=== PATIENT | male | born 1940 | race Caucasian/White ===

== ENCOUNTER 2019-04-02 11:28 | Inpatient (IN) ==
[2019-04-02] MEDS ORDERED: NS 1,000 ML IV PRN ×2 (11:39→17:19)
--- NOTE | 2019-04-02 12:29 | Diag Imaging Result Doc PS360 ---
CT HEAD W/O CONTRAST - 04/02/2019 INDICATION: new onset of seizure COMPARISON: None FINDINGS: There is a large area of old encephalomalacia at the posterior right cerebral hemisphere compatible with an old infarction. This would be in the posterior cerebral artery territory. There is some mild periventricular and pontine white matter hypodensity compatible with chronic microvascular ischemia. No intracranial mass or hemorrhage. The skull is intact. The sinuses are clear. There is a small benign lipoma at the right side of the scalp. IMPRESSION: Chronic ischemic changes of the brain. No suspicious findings seen. This exam was performed using automated exposure control, adjustment of mA or kV according to patient size, and/or use of iterative reconstruction technique Electronically signed by South Lamb 04/02/2019 12:27 PM
--- NOTE | 2019-04-02 12:30 | Diag Imaging Result Doc PS360 ---
CHEST-PORTABLE - 04/02/2019 INDICATION: seizure COMPARISON: None FINDINGS: There is mild cardiomegaly. Pulmonary vascularity is grossly normal. No infiltrates or edema. No pneumothorax or pleural effusion. IMPRESSION: Cardiomegaly. Electronically signed by South Lamb 04/02/2019 12:28 PM
[2019-04-02] MEDS ORDERED: DOPAMINE 800 MG/D5W 800 MG/500 ML IV.SOLN IV SCH (13:15)
[2019-04-02 13:18] LABS: INR 1.13; PROTIME 15.1 Seconds (11.0-16.0)
[2019-04-02 13:19] LABS: PTT 24.1 Seconds (22.3-41.8)
[2019-04-02] MEDS ORDERED: ROCEPHIN IV ONE (13:26)
[2019-04-02] MEDS ORDERED: NS 1,000 ML IV ONE ×3 (13:36→14:11)
[2019-04-02 13:38] LABS: AGAP 15; ALKALINE PHOSPHATASE 74 U/L (32-122); BUN 13 mg/dL (8-22); CALCIUM 8.2 mg/dL (8.8-10.2); CHLORIDE 113 mmol/L (98-107); COSMO 288; ESTIMATED GFR > 60; GLUCOSE 111 mg/dL (70-104); GOT 23 U/L (10-34); GPT 32 U/L (10-44); POTASSIUM 4.5 mmol/L (3.5-5.1); SODIUM 144 mmol/L (136-145); TCO2 16 mmol/L (25-35); TOTAL PROTEIN 5.4 g/dL (6.3-8.3)
[2019-04-02 13:42] LABS: BASO# 0.02 X1000 (0.0-0.2); BASO% 0.2 % (0.0-0.8); EOS# 0.03 X1000 (0.0-0.7); EOS% 0.3 % (0.0-10.0); HEMATOCRIT 31.4 % (42.0-52.0); IMM GRAN# 0.03 X1000 (0.0-0.04); IMM GRAN% 0.3 % (0.0-0.5); LYMPH% 5.9 % (20.5-51.1); MCH 31.9 PG (27-31); MCHC 31.8 g/dL (33-37); MCV 100.3 FL (81-99); MONO# 0.72 X1000 (0.11-0.59); MONO% 7.1 % (1.7-9.3); MPV 9.8 FL (7.4-10.4); NEUT% 86.2 % (42.2-75.2); PLT 177 X1000 (130-400); RBC 3.13 XMIL (4.7-6.1); RDW 12.6 % (11.5-14.5)
--- NOTE | 2019-04-02 13:44 | PROVIDER DOCUMENTATION ---
This chart was entered by Ayanna Tian Scribe, acting as scribe for Sandra Pena MD. HPI-Neurological Disorder - General Stated Complaint: stroke symptoms Time Seen by Provider: 04/02/19 11:33 Source: patient, family, EMS Unable to obtain history due to:: urgency Allergies/Adverse Reactions: Patient Allergies Allergy/AdvReac Type Severity Reaction Status Date / Time No Known Allergies Allergy Verified 04/02/19 16:30 Home Medications: Home Medication List Medication Instructions Recorded Confirmed Last Taken Type Apixaban [Eliquis] 5 mg PO DAILY 04/02/19 04/02/19 04/02/19 History 5mg Atorvastatin Calcium [Lipitor] 40 mg PO DAILY 04/02/19 04/02/19 04/02/19 History 40 Metoprolol [Lopressor] 25 mg PO DAILY 04/02/19 04/02/19 04/02/19 History 25mg Sertraline [Zoloft] 50 mg PO DAILY 04/02/19 04/02/19 04/02/19 History 50mg - History of Present Illness-Neuro Nature of Presenting Problem: 78 yowm presents to the ed via ems (first response) with acute onset at 1000am with with pt at onset. called 911. per ems pt when aos pt had left upward gaze, LUE weakness, facial droop. medic sts pt could move BLE. pt once at ed went straight to CT and once pt was placed on the table he began to have a seizure. pt was brought back to ed in afib and actively seizing. pt was given Ativan and is currently resting with family at bedside. pt will not recieve TPA due to having a seizure. pt has no hx of seizure disorder Severity: reports: severe Onset/Duration: reports: this morning (1000am) Timing: reports: still present, constant Context: reports: impaired speech, seizure activity Character of Altered Mental Status: reports: confused Any recent trauma/injury?: reports: none Character of Deficits: reports: impaired speech New weakness or altered sensation location:: reports: LUE Cognitive Baseline: alert, oriented x3 Gait Baseline: walks without assistance Associated Symptoms: reports: confusion, seizures, weakness Similar Symptoms Previously?: Yes (cva in past) Recently seen or treated by another doctor?: No - Seizure First time to have a seizure?: Yes Witnessed seizure?: Yes (in CT) How many seizure episodes?: 1 Duration of episode? (mins): 2 Episode Frequency: no prior episodes Status Epilepticus: No Preceding symptoms/context:: other (possible CVA) Post-ictal Symptoms: reports: speech difficulty Seizure related injury: none Review of Systems - Adult - REVIEW OF SYSTEMS - ADULT ROS:: ROS per family (son renan) Constitutional: denies: chills, fever Eyes: reports: no symptoms reported Ears, Nose, Mouth & Throat: reports: no symptoms reported Cardiovascular: reports: see HPI, palpitations. denies: chest pain, syncope Respiratory: denies: cough, shortness of breath, wheezing Gastrointestinal: denies: diarrhea, nausea, vomiting Genitourinary: reports: no symptoms reported Musculoskeletal: denies: back pain, neck pain Integumentary: reports: no symptoms reported Neurological: reports: see HPI, seizure. denies: dizziness/vertigo, headache/migraines Psychiatric: reports: no symptoms reported Endocrine: reports: no symptoms reported Hematologic/Lymphatic: reports: no symptoms reported Allergic/Immunologic: reports: no symptoms reported All Other Systems: Reviewed and Negative Past History - Adult - PAST MEDICAL HISTORY-ADULT Review of Records: reports: Old Records Reviewed, Nursing Assessment Review, Medications Reviewed, Social history reviewed & non-contributory. Major Childhood Illnesses: reports: denies history Cardiovascular: reports: A-Fib, HTN Respiratory: reports: denies history Gastrointestinal: reports: GERD Genitourinary: reports: denies history Musculoskeletal: reports: denies history Hand Dominance: Right Handed Neurological: reports: CVA, stroke deficits. denies: Seizures/Epilepsy Psychiatric: reports: denies history Endocrine/Immune: reports: denies history Other Conditions: reports: denies history - PRIOR SURGERIES/PROCEDURES Surgical/Procedure History: reports: reviewed, not pertinent - IMMUNIZATION STATUS Childhood Immunizations: See Nurse Assessment Flu Vaccine: See Nurse Assessment - FAMILY HISTORY Family History: reviewed, not pertinent - SOCIAL HISTORY Smoking: denies Substance Use: denies Living Situation: family Physical Exam- Neurological - Physical Exam-Neuro Initial Vital Signs Reviewed: Yes (in afib with acute cva sx ) General Appearance: moderate distress, obese, lethargic. 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 Exam: abnormal pupil position (left upward gaze), gaze palsy Neurologic: other (unable to fully assess, patient was in postictal state, but moved all extremities) Integumentary: normal color, normal turgor, warm/dry - Glascow Coma Scale Best Eye Response: (2) open to pain Best Verbal Response: (2) incomprehsible sounds Best Motor Response: (5) localizes to pain Total Glascow Score: 9 Progress - PLAN OF CARE/RESULTS Progress/Plan/Lab Results: Vital Signs - 8 hr 04/02/19 11:37 04/02/19 12:00 04/02/19 14:00 Temperature 97.8 F 97.6 F Pulse Rate 170 H 161 H Respiratory Rate 18 12 Blood Pressure 99/56 52/38 O2 Sat by Pulse Oximetry 91 L 93 L Laboratory Results - last 24 hr 04/02/19 04/02/19 04/02/19 11:39 11:39 11:39 WBC 10.20 RBC 3.13 L Hgb 10.0 L Hct 31.4 L MCV 100.3 H MCH 31.9 H MCHC 31.8 L RDW Std Deviation 12.6 Plt Count 177 MPV 9.8 Immature Gran % (Auto) 0.3 Neut % (Auto) 86.2 H Lymph % (Auto) 5.9 L [place] % (Auto) 7.1 Eos % (Auto) 0.3 Baso % (Auto) 0.2 Immature Gran # (Auto) 0.03 Neut # (Auto) 8.80 H Lymph # (Auto) 0.60 L [place] # (Auto) 0.72 H Eos # (Auto) 0.03 Baso # (Auto) 0.02 Segmented Neutrophils 85 H Lymphocytes 8 L Monocytes 7 PT INR PTT (Actin FS) Specimen Type Sample Site pH pCO2 pO2 HCO3 Base Excess Oxyhemoglobin ABG O2 Sat (Calculated) ABG O2 Saturation ABG Carboxyhemoglobin ABG Methemoglobin Eitan Test A-a O2 Difference Total Hemoglobin Lactate Liter Flow Blood Gas Modality FiO2 % Sodium 144 Potassium 4.5 Chloride 113 H Carbon Dioxide 16 L Anion Gap 15 BUN 13 Creatinine 1.0 Estimated GFR/1.73 m2 > 60 BUN/Creatinine Ratio 13 Glucose 111 H POC Glucose Calculated Osmolality 288 Calcium 8.2 L Total Bilirubin 0.40 AST 23 ALT 32 Alkaline Phosphatase 74 Creatine Kinase Troponin T < 0.010 Total Protein 5.4 L Albumin 4.0 Globulin 1.0 Albumin/Globulin Ratio 3.0 Plasma Lactate Urine Source Urine Color Urine Clarity Urine pH Ur Specific [place] Urine Protein Urine Ketones Urine Blood Urine Nitrite Urine Bilirubin Urine Urobilinogen Urine Microscopic RBC Urine WBC Urine Microscopic WBC Ur Epithelial Cells Urine Crystals Urine Bacteria Urine Casts Urine Yeast Urine Glucose Urine Opiates Screen Ur Oxycodone Screen Urine Methadone Screen U Propoxyphene Qual Ur Barbituates Screen Ur Tricyclics Screen Ur Phencyclidine Scrn Ur Amphetamines Screen U Methamphetamines Scrn U Benzodiazepines Scrn Urine Cocaine Screen U Cannabinoids Screen 04/02/19 04/02/19 04/02/19 11:39 12:43 12:43 WBC RBC Hgb Hct MCV MCH MCHC RDW Std Deviation Plt Count MPV Immature Gran % (Auto) Neut % (Auto) Lymph % (Auto) [place] % (Auto) Eos % (Auto) Baso % (Auto) Immature Gran # (Auto) Neut # (Auto) Lymph # (Auto) [place] # (Auto) Eos # (Auto) Baso # (Auto) Segmented Neutrophils Lymphocytes Monocytes PT 15.1 INR 1.13 PTT (Actin FS) 24.1 Specimen Type Sample Site pH pCO2 pO2 HCO3 Base Excess Oxyhemoglobin ABG O2 Sat (Calculated) ABG O2 Saturation ABG Carboxyhemoglobin ABG Methemoglobin Eitan Test A-a O2 Difference Total Hemoglobin Lactate Liter Flow Blood Gas Modality FiO2 % Sodium Potassium Chloride Carbon Dioxide Anion Gap BUN Creatinine Estimated GFR/1.73 m2 BUN/Creatinine Ratio Glucose POC Glucose Calculated Osmolality Calcium Total Bilirubin AST ALT Alkaline Phosphatase Creatine Kinase 87 Troponin T Total Protein Albumin Globulin Albumin/Globulin Ratio Plasma Lactate 6.6 H* Urine Source Urine Color Urine Clarity Urine pH Ur Specific [place] Urine Protein Urine Ketones Urine Blood Urine Nitrite Urine Bilirubin Urine Urobilinogen Urine Microscopic RBC Urine WBC Urine Microscopic WBC Ur Epithelial Cells Urine Crystals Urine Bacteria Urine Casts Urine Yeast Urine Glucose Urine Opiates Screen Ur Oxycodone Screen Urine Methadone Screen U Propoxyphene Qual Ur Barbituates Screen Ur Tricyclics Screen Ur Phencyclidine Scrn Ur Amphetamines Screen U Methamphetamines Scrn U Benzodiazepines Scrn Urine Cocaine Screen U Cannabinoids Screen 04/02/19 04/02/19 04/02/19 13:34 14:05 14:15 WBC RBC Hgb Hct MCV MCH MCHC RDW Std Deviation Plt Count MPV Immature Gran % (Auto) Neut % (Auto) Lymph % (Auto) [place] % (Auto) Eos % (Auto) Baso % (Auto) Immature Gran # (Auto) Neut # (Auto) Lymph # (Auto) [place] # (Auto) Eos # (Auto) Baso # (Auto) Segmented Neutrophils Lymphocytes Monocytes PT INR PTT (Actin FS) Specimen Type ARTERIAL Sample Site L RADIAL pH 7.33 L pCO2 37 pO2 61 HCO3 20.2 Base Excess -5.9 L Oxyhemoglobin 90.0 L ABG O2 Sat (Calculated) 14.5 L ABG O2 Saturation 92.3 L ABG Carboxyhemoglobin 1.70 ABG Methemoglobin 0.9 Eitan Test YES A-a O2 Difference 149.0 Total Hemoglobin 11.4 L Lactate 1.10 Liter Flow 4.0 Blood Gas Modality CANNULA FiO2 % 36.0 Sodium Potassium Chloride Carbon Dioxide Anion Gap BUN Creatinine Estimated GFR/1.73 m2 BUN/Creatinine Ratio Glucose POC Glucose 88 Calculated Osmolality Calcium Total Bilirubin AST ALT Alkaline Phosphatase Creatine Kinase Troponin T Total Protein Albumin Globulin Albumin/Globulin Ratio Plasma Lactate Urine Source Urine Color Urine Clarity Urine pH Ur Specific [place] Urine Protein Urine Ketones Urine Blood Urine Nitrite Urine Bilirubin Urine Urobilinogen Urine Microscopic RBC Urine WBC Urine Microscopic WBC Ur Epithelial Cells Urine Crystals Urine Bacteria Urine Casts Urine Yeast Urine Glucose Urine Opiates Screen NONE DETECTED Ur Oxycodone Screen NONE DETECTED Urine Methadone Screen NONE DETECTED U Propoxyphene Qual NONE DETECTED Ur Barbituates Screen NONE DETECTED Ur Tricyclics Screen NONE DETECTED Ur Phencyclidine Scrn NONE DETECTED Ur Amphetamines Screen NONE DETECTED U Methamphetamines Scrn NONE DETECTED U Benzodiazepines Scrn PRESUMPTIVE POSITIVE A Urine Cocaine Screen NONE DETECTED U Cannabinoids Screen NONE DETECTED 04/02/19 14:15 WBC RBC Hgb Hct MCV MCH MCHC RDW Std Deviation Plt Count MPV Immature Gran % (Auto) Neut % (Auto) Lymph % (Auto) [place] % (Auto) Eos % (Auto) Baso % (Auto) Immature Gran # (Auto) Neut # (Auto) Lymph # (Auto) [place] # (Auto) Eos # (Auto) Baso # (Auto) Segmented Neutrophils Lymphocytes Monocytes PT INR PTT (Actin FS) Specimen Type Sample Site pH pCO2 pO2 HCO3 Base Excess Oxyhemoglobin ABG O2 Sat (Calculated) ABG O2 Saturation ABG Carboxyhemoglobin ABG Methemoglobin Eitan Test A-a O2 Difference Total Hemoglobin Lactate Liter Flow Blood Gas Modality FiO2 % Sodium Potassium Chloride Carbon Dioxide Anion Gap BUN Creatinine Estimated GFR/1.73 m2 BUN/Creatinine Ratio Glucose POC Glucose Calculated Osmolality Calcium Total Bilirubin AST ALT Alkaline Phosphatase Creatine Kinase Troponin T Total Protein Albumin Globulin Albumin/Globulin Ratio Plasma Lactate Urine Source CATH Urine Color YELLOW Urine Clarity CLEAR Urine pH 5.0 Ur Specific [place] 1.015 Urine Protein 1+(30 mg/dL) A Urine Ketones TRACE Urine Blood NEGATIVE Urine Nitrite NEGATIVE Urine Bilirubin NEGATIVE Urine Urobilinogen NORMAL Urine Microscopic RBC <10 Urine WBC NEGATIVE Urine Microscopic WBC <10 Ur Epithelial Cells <10 Urine Crystals NONE SEEN Urine Bacteria NEGATIVE Urine Casts NONE SEEN Urine Yeast NONE SEEN Urine Glucose NEGATIVE Urine Opiates Screen Ur Oxycodone Screen Urine Methadone Screen U Propoxyphene Qual Ur Barbituates Screen Ur Tricyclics Screen Ur Phencyclidine Scrn Ur Amphetamines Screen U Methamphetamines Scrn U Benzodiazepines Scrn Urine Cocaine Screen U Cannabinoids Screen Orders Category Date Time Status [facility] Routine [id number] 04/02/19 14:09 Active Activity - Strict Bedrest ORDERED Care 04/02/19 14:09 Active Cardiac Monitoring DIRECTED Care 04/02/19 11:39 Completed Cardiac Monitoring DIRECTED Care 04/02/19 13:23 Completed Finger Stick Blood Sugar (ED) DIRECTED Care 04/02/19 11:39 Completed [place] Cath Insertion ORDERED Care 04/02/19 13:35 Completed IV Insertion ORDERED Care 04/02/19 13:23 Completed Intake and Output-Strict ORDERED Care 04/02/19 14:09 Active Misc. NRSG Communication Order DIRECTED Care 04/02/19 11:39 Completed Neurological Check ORDERED Care 04/02/19 14:11 Active Notify MD of + Sepsis Screen NOW Care 04/02/19 13:23 Completed Notify Physician As Ordered Care 04/02/19 13:23 Active Nursing [Misc. NRSG Communication Order] DIRECTED Care 04/02/19 14:12 Active Nursing [Misc. NRSG Communication Order] DIRECTED Care 04/02/19 14:13 Active Nursing- MD Consult Request ROUTINE Care 04/02/19 15:08 Completed Oxygen Therapy- ED Nursing DIRECTED Care 04/02/19 11:39 Completed Saline Loc NOW Care 04/02/19 11:39 Completed Seizure Precautions ROUTINE Care 04/02/19 14:14 Active Update & Confirm Home Medicati ROUTINE Care 04/02/19 14:11 Completed Vital Signs Order Q1H Care 04/02/19 14:09 Completed Z-Document. for Tele Applied ORDERED Care 04/02/19 14:10 Completed Physician/Provider Consults Routine Cons 04/02/19 15:08 Ordered NPO Diet 04/02/19 14:10 Completed CHEST-PORTABLE [RAD] Stat Exams 04/02/19 11:[address] HEAD W/O CONTRAST [CT] Stat Exams 04/02/19 11:39 Completed ABG [RESP] Routine Lab 04/02/19 14:05 Completed BLOOD CULTURE [BLDCUL] Stat Lab 04/02/19 12:43 Received CBC WITH ELECTRONIC DIFF [HEME] Stat Lab 04/02/19 11:39 Completed CK PROFILE [SP CHEM] Stat Lab 04/02/19 12:43 Completed COMPREHENSIVE METABOLIC PANEL [CHEM] Stat Lab 04/02/19 11:39 Completed LACTATE, PLASMA [CHEM] Lab 04/02/19 12:43 Completed LACTATE, PLASMA [CHEM] Lab 04/02/19 16:51 Completed PROTIME WITH INR [COAG] Stat Lab 04/02/19 11:39 Completed PTT [COAG] Stat Lab 04/02/19 11:39 Completed TROPONIN T Stat Lab 04/02/19 11:[address] W/POSS RFLX CULT [URINALYSIS] Stat Lab 04/02/19 14:15 Com[address] DRUG SCREEN [address] Stat Lab 04/02/19 14:15 Completed 0.9% Sodium Chloride Inj [Ns] 1,000 ml Med 04/02/19 11:39 Discontinued IV 500 mls/hr 0.9% Sodium Chloride Inj [Ns] 1,000 ml Med 04/02/19 14:11 Discontinued IV 500 mls/hr 0.9% Sodium Chloride Inj [Ns] 1,000 ml Med 04/02/19 13:36 Discontinued IV 999 mls/hr 0.9% Sodium Chloride Inj [Ns] 1,000 ml Med 04/02/19 13:37 Discontinued IV 999 mls/hr Azithromycin 500 mg/Ns [Zithromax 500 mg/Ns] Med 04/02/19 15:15 Discontinued 500 mg in 250 ml IV Q24H CefTRIAXONE [Rocephin] Med 04/02/19 13:26 Discontinued 1 gm IV NOW ONE CefTRIAXONE [Rocephin] 1 gm Med 04/03/19 14:00 Discontinued 0.9% Sodium Chloride Inj [Ns] 50 ml IV Q24H Dopamine 800 mg/D5w Med 04/02/19 13:15 Discontinued 800 mg in 500 ml IV As Directed mls/hr Lorazepam [Ativan] Med 04/02/19 15:16 Discontinued 2 mg IV NOW ONE Oxygen Device Stat Oth 04/02/19 13:23 Active Telemetry [OM.EQ] Routine Oth 04/02/19 14:09 Active Transfer/Admit Order [TRANSFER] Routine Transfer 04/02/19 14:14 Completed pt is not a candidate for TPA due to seizure Result Diagrams: 04/02/19 11:39 04/02/19 11:39 - REASSESSMENT Reassessment #1 Time Reassessed: 11:46 Status: unchanged (seizure stopped/ BP 85/39 HR 132) Reassessment Comment: dr epna at bedside speaking with family Reassessment #2 Time Reassessed: 12:11 Status: unchanged (pt going baclk to CT) Reassessment #3 Time Reassessed: 12:33 Status: unchanged (pt has current BP 86/39 HR 126 discussed with family that patient had seizure in the ER) Reassessment Comment: dr pena at bedside - EKG 1 Time of EKG reading by physician:: 11:33 EKG Read and Signed by:: Sandra Pena EKG Interpretation (*Must complete 3 of following elements*): Abnormal Rate: 110 Rhythm: afib with rvr w/ premature ventricular or aberrantly conducted complexes [place]: normal QRS: RBB (incomplete), other (low voltage qrs) AR Interval: normal ST Wave: normal Comments: septal/lateral infarct, age undetermined - XRAY 1 XRAY: Bilateral XRAY Study: Chest Impression: See EMR Report (CHEST-PORTABLE - 04/02/2019 INDICATION: seizure COMPARISON: None FINDINGS: There is mild cardiomegaly. Pulmonary vascularity is grossly normal. No infiltrates or edema. No pneumothorax or pleural effusion. IMPRESSION: Cardiomegaly. Electronically signed by South Lamb 04/02/2019 12:28 PM 04/02/19 1228 Interpreting Physician: South Lamb MD Dictated Date/Time: 04/02/19 1227 cc: Sandra Pena MD; Darryn Guerrero DO) - CT/MRI 1 CT Study: Head Impression: See EMR Report (CT HEAD W/O CONTRAST - 04/02/2019 INDICATION: new onset of seizure COMPARISON: None FINDINGS: There is a large area of old encephalomalacia at the posterior right cerebral hemisphere compatible with an old infarction. This would be in the posterior cerebral artery territory. There is some mild periventricular and pontine white matter hypodensity compatible with chronic microvascular ischemia. No intracranial mass or hemorrhage. The skull is intact. The sinuses are clear. There is a small benign lipoma at the right side of the scalp. IMPRESSION: Chronic ischemic changes of the brain. No suspicious findings seen. This exam was performed using automated exposure control, adjustment of mA or kV according to patient size, and/or use of i terative reconstruction technique Electronically signed by South Lamb 04/02/2019 12:27 PM 04/02/19 1227 Interpreting Physician: South Lamb MD Dictated Date/Time: 04/02/19 1226 cc: Sandra Pena MD; Darryn Guerrero DO) - CONSULTS/PCP/HOSPITALIST Notification #1 *Consult/PCP/Hospitalist*: transfer center Time Discussed: 12:46 (no beds) Reason/Comments: phone consult #2 Consult: hospitalist dr valero Time Discussed: 13:33 Reason/Comments: phone consult Departure - Departure Date of Disposition Decision: 04/02/19 Time of Disposition Decision: 13:45 DIAGNOSIS: Seizure, Atrial fibrillation with RVR Hypotension Qualifiers: Hypotension type: unspecified hypotension type Qualified Code(s): I95.9 - Hypot ension, unspecified Disposition: [place] [id number] Certified Medical Emergency: Emergent Condition: Critical - Critical Care Note This patient required my direct & personal management of CC.: Yes Total Time (mins): 48 Critical Care Statement: This patient required my direct personal management to treat or rule out processes, the absence of which, could potentiallly result in sudden, clinically significant life or limb threatening deterioration. Attestation - Physician/ ANGELO Attestation Patient care was provided by Advanced Practice Provider:: No The physician spent face to face time with patient:: Yes Advanced Practice Provider documentation review:: Supervising physician onsite and consulted in the evaluation and care of this patient. The physician did have a face to face encounter with the patient. Stroke tPA Guidelines - Inclusion Criteria for IV tPA 18 years old or older: Yes Ischemic stroke with measurable deficit: Unable to Obtain Onset <3 hours ago *OR* 3-4.5 hours ago: Unable to Obtain - Exclusion Criteria for IV tPA Evidence of intracranial hemorrhage on CT: No Presentation suggest SAH: No Seizure at stroke onset: Yes Heparin Within Last 48 HRS (PTT >Lab normal limits): No INR > 1.7 (warfarin use): No Use IIB/IIIA inhibitors within 24 hours: No Serious Head Trauma Within Last 3 Months: No - Additional Exclusion Criteria for IV tPA Currently on Coumadin: No Prior stroke and diabetes: Yes - Relative Contraindications to IV tPA AMI within 3 months: No Gastrointestinal or Urinary Tract hemorrhage in Past 21 Days: No This chart was documented by the indicated scribe, (Ayanna Tian Scribe) and accurately reflects the services I performed and decisions made by me, Sandra Pena MD, as attested by the provider's signature.
[2019-04-02 13:46] LABS: LYMPHS 8 % (21-51); MONO 7 % (1-9); SEGS 85 % (42-75)
[2019-04-02 14:32] LABS: BE -5.9 mmoll (-3.0-3.0); BLOOD TYPE ARTERIAL; HCO3-(ACT) 20.2 mmoll (20.0-26.0); METHB 0.9 % (0.0-1.5); O2(CT) 14.5 mL/dL (15.0-23.0); PCO2(98.6) 37 mmHg (35-45); PO2(98.6) 61 mmHg (60-100); SAMPLE BLOOD; SAO2 92.3 % (95.0-100.0); THB 11.4 g/dL (11.5-17.4); pH(98.6) 7.33 (7.35-7.45)
[2019-04-02 14:34] LABS: ALLEN TEST YES; MODALITY CANNULA
[2019-04-02 14:51] LABS: BILIRUBIN URINE NEGATIVE (NEGATIVE); BLOOD URINE NEGATIVE (NEGATIVE); CLARITY CLEAR (CLEAR); COLOR YELLOW; GLUCOSE URINE NEGATIVE (NEGATIVE); KETONE URINE TRACE mg/dL (NEGATIVE); LEUKOCYTES URINE NEGATIVE (NEGATIVE); NITRITE URINE NEGATIVE (NEGATIVE); PROTEIN URINE 1+(30 mg/dL) mg/dL (NEGATIVE); SP GRAVITY URINE 1.015; URINE SOURCE CATH; UROBILINOGEN URINE NORMAL
[2019-04-02 14:52] LABS: UR AMPHETAMINES QUAL NONE DETECTED (NONE DETECT); UR BARBITUATES QUAL NONE DETECTED (NONE DETECT); UR BENZODIAZEPIN QUAL PRESUMPTIVE POSITIVE (NONE DETECT); UR CANNABINOIDS QUAL NONE DETECTED (NONE DETECT); UR COCAINE QUAL NONE DETECTED (NONE DETECT); UR METHADONE QUAL NONE DETECTED (NONE DETECT); UR METHAMPHETAMINE QUAL NONE DETECTED (NONE DETECT); UR OPIATES QUAL NONE DETECTED (NONE DETECT); UR OXYCODONE QUAL NONE DETECTED (NONE DETECT); UR PCP QUAL NONE DETECTED (NONE DETECT); UR PROPOXYPHENE QUAL NONE DETECTED (NONE DETECT); UR TCA QUAL NONE DETECTED (NONE DETECT)
[2019-04-02 14:54] LABS: URINE RBC <10 /HPF (<10); URINE WBC <10 /HPF (<10)
[2019-04-02 14:55] LABS: URINE EPITHELIAL CELLS <10 /HPF (<10)
[2019-04-02 14:56] LABS: URINE BACTERIA NEGATIVE /HFP; URINE CAST NONE SEEN /LPF; URINE CRYSTAL NONE SEEN /HPF; URINE YEAST NONE SEEN /HPF
[2019-04-02] MEDS ORDERED: ZITHROMAX 500 MG/NS 500 MG/250 ML IVPB IV SCH (15:15)
[2019-04-02] MEDS ORDERED: ATIVAN IV ONE (15:16)
[2019-04-02] MEDS ORDERED: NEO-SYNEPHRINE 50 MG in NS 250 ML IV SCH (17:15)
[2019-04-02] MEDS ORDERED: NS 1,000 ML IV SCH (17:45)
[2019-04-02] MEDS ORDERED: KEPPRA 500 MG in NS 100 ML IV SCH (18:00)
[2019-04-02] MEDS: ZITHROMAX 500 MG/NS 500 MG/250 ML IVPB IV SCH (18:12)
--- NOTE | 2019-04-02 18:14 | EKG Report ---
Test Performed on : 04/02/2019 6:05:22 PM Test Reason : afib Blood Pressure : / mmHG Vent. Rate : 092 BPM Atrial Rate : 096 BPM P-R Int : 000 ms QRS Dur : 082 ms QT Int : 354 ms P-R-T Axes : 000 062 001 degrees QTc Int : 437 ms Atrial fibrillation. with a competing junctional pacemaker. Abnormal ECG No previous ECGs available Unconfirmed Result
--- NOTE | 2019-04-02 18:35 | HISTORY AND PHYSICAL ---
ADDENDUM: Patient seen and examined by myself. Full note dictated and discussed with nurse practitioner. Patient presented to the hospital with stroke-like symptoms. He was at home, and became confused. His called the son to get him to the hospital. Currently, he still seems confused although he is postictal. He had a seizure while on the CT scanner. He has not had a previous history of seizures. His heart rate is elevated from 110 to 120s. He also was noted to have blood pressure 75-85 systolic. We are going to admit him to the hospital, place him on presser agents. Attempt to control his atrial fibrillation. Monitor for further seizure activity. We will consult Neurology. Further orders as needed. cc: Yaw Nichols MD
--- NOTE | 2019-04-02 18:44 | HISTORY AND PHYSICAL ---
CHIEF COMPLAINT: Possible stroke. 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 He presents to the emergency room via EMS having been called by the patient's . Reportedly, the patient told the he thought he was having a stroke today because he could not control his arm movement. According to the emergency room record, the patient was taken straight to CT and shortly after being put on the CT table, he had a grand mal seizure. He was brought back to the emergency room, found to be in atrial fibrillation, RVR actively seizing. He was given Ativan. His seizure did resolve. At the time of my exam, he is still sedated from the Ativan. He has a son and maybe son- in-law at the bedside. Family reports no prior history of seizures. PAST MEDICAL HISTORY: Atrial fibrillation, hypertension, prior CVA with loss of left peripheral vision, and gastroesophageal reflux disease. PAST SURGICAL HISTORY: No documentation. SOCIAL HISTORY: The sons deny any alcohol, tobacco, or illicit drug use. ALLERGIES: None recorded. HOME MEDICATIONS: A list will be obtained by the nursing staff, and once verified will review and restart as appropriate. REVIEW OF SYSTEMS: Unable to obtain from the patient as he is sedated, and having difficulty answering questions. PHYSICAL EXAMINATION: GENERAL: This is a 78-year-old gentleman who is lying on the stretcher in the emergency room in no distress. VITAL SIGNS: Blood pressure 96/54 with a heart rate ranging from 102 to 110, atrial fibrillation, respirations are 16, temperature is 97.8 degrees oral with room air saturations ranging 91 to 93 percent on 2 L nasal cannula. EYES: Pupils are equal and round. They react to light. He has no nystagmus. Sclerae are anicteric. HEENT: Head is normocephalic, atraumatic. Mucous membranes are moist. NECK: Supple with trachea midline. CARDIOVASCULAR: Irregularly irregular rate and rhythm. S1 and S2 are appreciated. He has no lower extremity edema. Peripheral pulses are palpable x4 extremities. PULMONARY: Breath sounds are clear with no increased work of breathing noted. Chest rises and falls symmetric with respiration. GASTROINTESTINAL: Abdomen is soft, nontender, and nondistended. Bowel sounds in all 4 quadrants. SKIN: Warm and dry. NEUROLOGIC: The patient is sedated. He does attempt to answer questions although his speech is somewhat slurred. He has no facial droop. No nystagmus. He moves extremities at random. He does withdraw from pain. He has difficulty following commands. He was unable to do heel, knee to cristina or finger to nose. LABORATORY DATA: WBC is 10.2 with hemoglobin 10, hematocrit 31.4, platelets of 177,000, sodium 144, potassium 4.5, chloride 113, CO2 16, with a BUN of 13, creatinine 1, and glucose of 111. Lactate is 6.6. Urinalysis is essentially negative with urine drug screen presumptive positive for benzodiazepines. CT of the head revealed chronic ischemic changes of the brain. No suspicious findings. Chest x-ray revealed cardiomegaly. No infiltrates or edema. ASSESSMENT AND PLAN: 1. Seizure. 2. Possible CVA. 3. Atrial fibrillation with rapid ventricular response. 4. Hypotension in a patient who has hypertension. 5. Hypertension. 6. Gastroesophageal reflux disease. 7. Prior CVA with resulting left peripheral vision loss. PLAN: The patient will be transferred to [facility], and admitted to ICU for close monitoring. We will consult Neurology and neuro checks per stroke protocol. We will continue with supplemental oxygen. We will identify his home medications. We will consult Dr. Ortiz in Neurology. Blood cultures were drawn in the emergency room due to a lactate of 6. Rocephin was started. We will continue Rocephin. Add azithromycin as he was in the hospital last week for symptoms that are similar. Any further antibiotics will be culture driven. He will be placed on seizure precautions. He will remain n.p.o. at present. Continue with IV hydration. Plan was discussed with Dr Nichols Further treatments pending hospital course. Dictated by JOSE Spicer for Yaw Nichols MD cc: JOSE Spicer MD [facility]
[2019-04-02] MEDS: KEPPRA 750 MG in NS 100 ML IV SCH (19:09)
--- NOTE | 2019-04-02 19:47 | Diag Imaging Result Doc PS360 ---
CT THORAX/ABD/PELVIS W/O CON - 04/02/2019 INDICATION: sepsis COMPARISON: Chest x-ray from earlier FINDINGS: CHEST: There is no adenopathy. There is cardiomegaly. There are trace bilateral pleural effusions. There is mild interstitial edema in the lung bases. No infiltrates otherwise. There is some fluid or mucus impaction of some smaller bronchi in the lung bases bilaterally. Abdomen pelvis: There is a simple appearing cyst in the posterior pole of the spleen. This measures 3 cm. There is severe rectal stool impaction with an 8 cm stool ball. There is a Ronquillo catheter in the urinary bladder. There is severe urinary bladder wall thickening diffusely. No renal stones or hydronephrosis. No bowel inflammation. There are moderate degenerative changes of the spine. No acute or suspicious bony lesion. IMPRESSION: 1. Severe rectal stool impaction. 2. Diffuse wall thickening of the urinary bladder that is nonspecific. 3. Cardiomegaly, trace pulmonary edema, trace pleural effusions. This exam was performed using automated exposure control, adjustment of mA or kV according to patient size, and/or use of iterative reconstruction technique Electronically signed by South Lamb 04/02/2019 7:44 PM
[2019-04-02] MEDS: LIPITOR PO SCH (20:48)
[2019-04-02] MEDS: COLACE PO SCH (20:52)
[2019-04-02] MEDS: DULCOLAX PR SCH ×2 (21:20→21:37)
--- NOTE | 2019-04-02 21:26 | CONSULTATION ---
DATE OF CONSULTATION: 04/02/2019 HISTORY OF PRESENT ILLNESS: Mr. Emerson is 78 years old and there is apparent recent first seizure. Neurologic history goes back to 7 months ago when he had sudden onset of left arm weakness and left-sided vision loss. He had evidence of stroke. We do not have records here. He reports left arm recovery to normal and vision improved, but not to normal. He does not recall having any other deficit associated with that event. Risk factors for stroke include atrial fibrillation, hypertension, dyslipidemia. He had an episode a few month ago behind the house he has lived in for 40 years when he seemed suddenly unaware of his surroundings, and there may have been a brief memory gap. Episode was not witnessed. There was not evidence of collapse or injury. Today, he noticed left arm seemed weaker than usual and then he had witnessed seizure with generalized clonic activity. There was brief postictal state. He was treated with lorazepam. He has not had seizure in recent hours. Workup includes noncontrast CT showing old large right posterior encephalomalacia consistent with his reported recent stroke and persistent left hemianopia. Lab shows anemia with MCV 100.3. Chemistry is unremarkable. He has been afebrile. He has been hypotensive with systolic blood pressures as low as the 50s, recently 90s. Heart rate has ranged 120s down to 88. Urine drug screen was positive for benzodiazepine. I believe that was obtained after he had the dose of lorazepam on presentation. Urine drug screen was otherwise negative. He reports no prior history of seizure, collapse, altered awareness or memory gap. He had history of head injury with a hatchet many years ago, but there is not history of recent head injury. MEDICATIONS: Home medicines are Eliquis, atorvastatin, metoprolol, sertraline. He had taken daily aspirin in the past, but not recently. PHYSICAL EXAMINATION: On exam, Mr. Emerson is awake, alert, attentive, appropriate. He is oriented. Speech is not dysarthric. Language function is intact. Memory of recent and remote events is good. I did not test his cognitive function thoroughly. Family at the bedside all agree he has not had cognitive impairment at baseline. Head and neck are unremarkable. Visual field testing shows full right field, and he has left hemianopia to careful confrontational finger counting. Extraocular movements are full. Facial motility is a little bit diminished bilaterally, but appears symmetric. Tongue is midline. Hearing is fair. He splints the right arm at the shoulder more than the left. He has good power in the arms and legs. Limb tone is symmetric. He did well on [id number]-[id number] testing bilaterally. He is a little bit tremulous, but there is no classifiable tremor or other abnormal movement. Plantar response is silent bilaterally. He reports symmetric pinprick appreciation over the limbs. I did not test his gait. IMPRESSION AND PLAN: 1. History sounds like recent-onset seizure. His report that there was a period of altered awareness or memory gap several days ago was likely seizure. His report that current episode began with increased left arm weakness is consistent with the old right hemisphere infarction as focus for recent seizure. In light of his age and stroke history, we will likely need to recommend long-term medicine for seizure prevention. I will order EEG, and further plans will depend on that report. 2. Imaging evidence of posterior right hemisphere infarction with left hemianopia and no other definite deficit. 3. He reports he is left-handed for handwriting and everything else is right- handed. I suspect he has dominant left hemisphere, and recent stroke and seizure were nondominant right hemisphere events. 4. He had significant hypotension earlier. Etiology for that is not clear to me. We might see cardiac arrhythmia and hypotension associated with certain seizures, but I am not certain that is the etiology and I will defer to attending and consultants for workup of that problem. I will empirically increase the levetiracetam from 500 mg to 750 mg q 12 hours starting tonight. EEG tomorrow. Further plans will depend on his clinical course. Thanks for asking Neurology to see Mr. Emerson. cc: MD JOLANTA Duran III
[2019-04-03 00:12] LABS: CK INDEX 1.9 (0.0-2.5); CK-MB 6.58 ng/mL (0.0-5.0)
[2019-04-03] MEDS: MAXIPIME 1 GM in NS 50 ML IV SCH ×2 (01:45→14:32)
[2019-04-03] MEDS: SODIUM CHLORIDE 0.9% INJ SCH (06:19)
[2019-04-03] MEDS: PROTONIX IV SCH (06:19)
[2019-04-03] MEDS: KEPPRA 750 MG in NS 100 ML IV SCH ×2 (06:19→19:18)
[2019-04-03 06:31] LABS: BASO# 0.01 X1000 (0.0-0.2); BASO% 0.1 % (0.0-0.8); EOS# 0.06 X1000 (0.0-0.7); EOS% 0.7 % (0.0-10.0); HEMATOCRIT 32.5 % (42.0-52.0); HEMOGLOBIN 10.6 g/dL (14.0-18.0); LYMPH# 1.73 X1000 (1.2-3.4); LYMPH% 19.4 % (20.5-51.1); MCH 32.4 PG (27-31); MCHC 32.6 g/dL (33-37); MCV 99.4 FL (81-99); MONO# 0.91 X1000 (0.11-0.59); MONO% 10.2 % (1.7-9.3); MPV 10.2 FL (7.4-10.4); NEUT# 6.22 X1000 (1.4-6.5); NEUT% 69.6 % (42.2-75.2); PLT 187 X1000 (130-400); RBC 3.27 XMIL (4.7-6.1); RDW 13.2 % (11.5-14.5); WBC 8.93 X1000 (4.8-10.8)
--- NOTE | 2019-04-03 07:02 | Diag Imaging Result Doc PS360 ---
CHEST-PORTABLE - 04/03/2019 INDICATION: dyspnea COMPARISON: 04/02/2019 FINDINGS: Stable cardiomegaly. No infiltrates or edema. No pneumothorax or pleural effusion. IMPRESSION: Cardiomegaly. Electronically signed by South Lamb 04/03/2019 7:00 AM
[2019-04-03 07:12] LABS: AGAP 12; ALBUMIN 3.9 g/dL (3.5-5.0); ALKALINE PHOSPHATASE 74 U/L (32-122); BUN 11 mg/dL (8-22); CALCIUM 8.2 mg/dL (8.8-10.2); CHLORIDE 111 mmol/L (98-107); COSMO 282; ESTIMATED GFR > 60; GLUCOSE 91 mg/dL (70-104); GOT 41 U/L (10-34); GPT 46 U/L (10-44); POTASSIUM 3.9 mmol/L (3.5-5.1); SODIUM 142 mmol/L (136-145); TCO2 19 mmol/L (25-35); TOTAL BILIRUBIN 0.89 mg/dL (0.20-1.00); TOTAL PROTEIN 5.9 g/dL (6.3-8.3)
[2019-04-03 07:19] LABS: CHOLESTEROL 113 mg/dL (0-200); HDL 44 mg/dL (35-55); LDL 56 mg/dL; TRIGLYCERIDES 67 mg/dL (39-160); VLDL 13 mg/dL
--- NOTE | 2019-04-03 07:29 | EKG Report ---
Test Performed on : 04/03/2019 06:45:37 AM Test Reason : afib Blood Pressure : / mmHG Vent. Rate : 073 BPM Atrial Rate : 071 BPM P-R Int : 000 ms QRS Dur : 086 ms QT Int : 400 ms P-R-T Axes : 000 082 061 degrees QTc Int : 440 ms Atrial fibrillation. Abnormal ECG When compared with ECG of 02-APR-2019 18:05, (Unconfirmed) Nonspecific T wave abnormality no longer evident in Inferior leads Unconfirmed Result
[2019-04-03 08:14] LABS: CK INDEX 1.4 (0.0-2.5); CK-MB 5.24 ng/mL (0.0-5.0)
[2019-04-03] MEDS ORDERED: ELIQUIS PO SCH (09:00)
[2019-04-03] MEDS: COLACE PO SCH ×2 (09:24→20:35)
[2019-04-03] MEDS: MIRALAX PO SCH (09:24)
--- NOTE | 2019-04-03 10:48 | PROGRESS NOTE ---
DATE: 04/03/2019 LOCATION: ICU bed 12. SUBJECTIVE: Mr. Emerson is awake and alert this morning. He reports no episodes of seizure, altered awareness, or memory gap since last night. EEG is about to begin. He has tolerated the levetiracetam to this point. IMPRESSION: Likely recent-onset seizures related to prior right hemisphere infarction. We will continue levetiracetam, and await electroencephalogram report. Today, he reports an episode a few months ago of possible altered awareness. I suspect he has had some partial seizures over that period of time, possibly some not recognized, remembered, or reported. In that setting, the decision to continue seizure medicine will be more clear. Thank you for asking Neurology to see Mr. Emerson. cc: MD JOLANTA Duran III
[2019-04-03] MEDS: ALDACTONE PO SCH (11:08)
--- NOTE | 2019-04-03 13:21 | Diag Imaging Result Doc PS360 ---
EXAM: MRI BRAIN W/O CONTRAST INDICATION: Stroke/seizure COMPARISON: CT head dated 04/02/2019. No prior MRI brain is available for comparison. FINDINGS: There is no evidence of acute infarct. There is extensive encephalomalacia involving the right occipital and posterior right temporal lobe indicating an old right TELLER HEAD distribution infarct. There is mild periventricular white matter microangiopathy. There is no discrete intracranial mass, mass effect, or intracranial hemorrhage. The surrounding soft tissues and bony structures are essentially unremarkable. IMPRESSION: Right TELLER HEAD distribution encephalomalacia and mild periventricular white matter microangiopathy. No evidence of acute intracranial pathology. Electronically signed by Richard George 04/03/2019 1:19 PM
[2019-04-03] MEDS ORDERED: ROCEPHIN 1 GM in NS 50 ML IV SCH ×4 (14:00)
--- NOTE | 2019-04-03 14:24 | CARDIOLOGY CONSULTATION ---
DATE: 04/03/2019 CHIEF COMPLAINTS: Weakness of left arm and seizure. HISTORY OF PRESENT ILLNESS: Mr. Emerson is a 78-year-old male who is normally followed by Dr. Kishore Hernández, drafting teacher at the [facility], and Dr. Darryn Guerrero, primary care doctor here in [facility] [address]. The patient presented to the ER yesterday, 04/02/2019, with sudden onset of left upper extremity weakness and facial droop. The patient says that he had some involuntary movement of the left upper extremity. Then, when he presented to the ER, they took him to the CT scanner, and on the CT scan, he had a grand mal seizure. Then, he was taken back to the holding area in the ER. They administered Ativan, and he stopped seizing. He came back to his senses. He has already been seen by Dr. Ortiz from Neurology, who has performed an evaluation. Please refer to his consultation dictated yesterday. The patient denies having any chest pains. He denies having any shortness of breath, palpitations, and that has been no recurrent documented seizure. PAST MEDICAL HISTORY: Positive for atrial fibrillation, which is permanent. He has been treated with Eliquis. The patient has a history of hyperlipidemia. He has had some carotid artery disease. He also has some issues with emphysema and COPD. The patient had suffered a stroke 7 months ago involving the right hemisphere in the posterior aspect of the brain, consistent with a previous stroke. PAST SURGICAL HISTORY: Negative. MEDICATIONS: His home medications at the time of this admission include apixaban 5 mg daily, atorvastatin 40 mg daily, metoprolol 25 mg daily, and sertraline (Zoloft) 50 mg daily. SOCIAL HISTORY: He is to his for 58 years. They have 4 grown up children. 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 Not a smoker. Not a drinker. FAMILY HISTORY: Really noncontributory. PHYSICAL EXAMINATION: Vital Signs: Blood pressure 105/55, temperature 98.4 degrees, pulse 83, respirations 17. General: He is awake, alert, oriented, follows commands. He does display some motion of the left upper extremity, somewhat involuntary, like in a choreic movement. HEENT: Otherwise unremarkable. Chest: Sounds clear to auscultation and percussion. Heart: Heart sounds are irregularly irregular, without gallop or murmur. Abdomen: Soft, nontender. No masses. No hepatomegaly. Extremities: Good pulses. No peripheral edema. Neurologic: Follows commands. Moves all 4 extremities. IMAGING: The head CT noted that finding on 04/02/2019 indicating a large area of old encephalomalacia at the posterior right cerebral hemisphere. That belongs to the posterior tibial artery territory. His EKG shows atrial fibrillation with controlled rate. No ischemic changes. Several EKGs have been done, one at 6 p.m., another one at 6:45 this morning. Chest x-ray done in the ER showed cardiomegaly. Chest, abdomen, and pelvis CT shows severe rectal stool impaction, cardiomegaly, trace pulmonary edema, trace pleural effusion, diffuse wall thickening of the urinary bladder. LABORATORY DATA: Include white count of 10,200, hemoglobin 10 grams, hematocrit 31.4%. Sodium is 144, potassium 4.5, BUN 13, creatinine 1.0. Creatinine kinase is 354, index is 1.9%. Troponin is 0.010, and a total of 4 have been drawn. His proBNP is 2844 pg/mL. IMPRESSION: 1. Patient who presents basically with weakness of left upper extremity, followed by what appears to be seizure. Dr. Ortiz has already evaluated the patient, and he believes that this seizure may be related to the previous stroke. 2. History of right posterior cerebral stroke 7 months ago. 3. Permanent atrial fibrillation. 4. Hyperlipidemia. 5. Chronic obstructive pulmonary disease. 6. The patient probably has some degree of diastolic heart failure, chronic. Previous nuclear stress test on him on 08/30/[address] Hernández's records. His ejection fraction by nuclear imaging was 62%. Cardiac echocardiogram at that time, 08/28/2018, showed ejection fraction of 50% with minimal mitral regurgitation. RECOMMENDATION: At this time, I will probably suggest to add a low-dose spironolactone to optimize his heart failure. I really do not have any additional suggestions. I would let Dr. Ortiz give all the appropriate recommendations to control this patient's neurological complaints. As far as Cardiology, the patient is already taking atorvastatin and apixaban. The apixaban really has to be prescribed twice a day. There is not a once a day formulation for that medication. Upon discharge, the patient is to be referred back to his drafting teacher, Dr. Kishore Hernández. cc: Wood Phillips MD MTDD
--- NOTE | 2019-04-03 17:33 | EEG REPORT ---
DATE: 04/03/2019 COMMENT: This is a digitally recorded EEG done portably in the ICU on a 78-year-old patient with history of posterior right hemisphere stroke and possible recent focal seizures. FINDINGS: During waking, frontal muscle contraction artifact is present, but does not hinder interpretation. There is polymorphic and rhythmic theta occurring symmetrically across the frontal and central regions. Very poorly sustained posterior rhythm at 9 hertz was present on the left, but not on the right. Photic stimulation produced better sustained entrainment on the left than the right. During waking, there were occasional bursts of higher amplitude slowing into the theta-delta range at 3-6 hertz, lasting 0.5 to 1.5 seconds. There was no definite associated epileptiform discharge. Drowsing occurred with appearance of more generalized slowing. Stage 2 sleep was not recorded. INTERPRETATION: Abnormal EEG because of asymmetry of posterior rhythm and mild generalized slowing. CORRELATION: First finding is indicative of a focal disturbance of electric cortical activity and would correlate with the known right posterior infarction. Second finding is indicative of a more diffuse disturbance of electric cortical activity and is nonspecific, particularly in this age group. The absence of epileptiform discharges on a single EEG does not exclude a clinical diagnosis of seizures. cc: Salomon Ortiz III, MD
[2019-04-03] MEDS: ZITHROMAX 500 MG/NS 500 MG/250 ML IVPB IV SCH (17:54)
[2019-04-03] MEDS: ELIQUIS PO SCH (20:35)
[2019-04-03] MEDS: LIPITOR PO SCH (20:35)
[2019-04-03] MEDS: DULCOLAX PR SCH (20:38)
--- NOTE | 2019-04-03 20:44 | PROGRESS NOTE ---
DATE: 04/03/2019 SUBJECTIVE: The patient is resting comfortably in bed. He states that he had a good night. He is off the Tonio-Synephrine drip. OBJECTIVE: Vital Signs: Temperature 98 degrees, blood pressure 107/90, heart rate 94, respirations 23, O2 saturation is 93% on room air. General: This is a chronically ill-appearing, elderly male, lying in bed in no acute distress. Heart: S1, S2 normal. Regular rate and rhythm. Lungs: Equal air entry bilaterally. No wheezing. No rales. Abdomen: Positive bowel sounds. Soft, nontender, nondistended. Extremities: No edema. No cyanosis. Neurologic: The patient is alert and oriented x4. LABORATORY DATA: Hemoglobin 10, hematocrit 32, platelets 187,000. Sodium 142, potassium 3.9, chloride 111, CO2 of 19, BUN 11, creatinine 1. ProBNP 2844. LDL 56. TSH 1.24. ASSESSMENT AND PLAN: 1. New onset seizures status post recent stroke. The patient is on Keppra. Further management as per Dr. Ortiz. 2. Hypotension. Resolved. The patient is off of the Tonio-Synephrine drip. 3. Chronic atrial fibrillation. The patient's medications have been adjusted by the pallet stone inserter. We will monitor the patient closely. 4. History of right posterior cerebral artery distribution infarct. Continue on the current medications. 5. We will consult Physical Therapy. cc: Martha Woods MD [facility]
[2019-04-04 05:53] LABS: BASO# 0.02 X1000 (0.0-0.2); BASO% 0.2 % (0.0-0.8); EOS# 0.04 X1000 (0.0-0.7); EOS% 0.5 % (0.0-10.0); HEMATOCRIT 31.4 % (42.0-52.0); HEMOGLOBIN 10.1 g/dL (14.0-18.0); IMM GRAN# 0.03 X1000 (0.0-0.04); IMM GRAN% 0.3 % (0.0-0.5); LYMPH# 1.57 X1000 (1.2-3.4); LYMPH% 18.2 % (20.5-51.1); MCH 32.2 PG (27-31); MCHC 32.2 g/dL (33-37); MONO# 0.99 X1000 (0.11-0.59); MONO% 11.5 % (1.7-9.3); MPV 10.5 FL (7.4-10.4); NEUT# 5.97 X1000 (1.4-6.5); NEUT% 69.3 % (42.2-75.2); PLT 170 X1000 (130-400); RBC 3.14 XMIL (4.7-6.1); RDW 13.3 % (11.5-14.5); WBC 8.62 X1000 (4.8-10.8)
[2019-04-04] MEDS: KEPPRA 750 MG in NS 100 ML IV SCH (06:08)
[2019-04-04] MEDS: PROTONIX IV SCH (06:08)
[2019-04-04 06:09] LABS: AGAP 14; BUN 9 mg/dL (8-22); CALCIUM 8.3 mg/dL (8.8-10.2); CHLORIDE 109 mmol/L (98-107); COSMO 282; ESTIMATED GFR > 60; GLUCOSE 95 mg/dL (70-104); POTASSIUM 3.8 mmol/L (3.5-5.1); SODIUM 142 mmol/L (136-145); TCO2 19 mmol/L (25-35)
[2019-04-04] MEDS: SODIUM CHLORIDE 0.9% INJ SCH (06:09)
[2019-04-04] MEDS: COLACE PO SCH (08:09)
[2019-04-04] MEDS: ELIQUIS PO SCH (08:09)
[2019-04-04] MEDS: MIRALAX PO SCH (08:09)
[2019-04-04] MEDS: ALDACTONE PO SCH (08:09)
[2019-04-04 11:48] VITALS: BP 133/71
--- NOTE | 2019-04-04 12:37 | PROGRESS NOTE ---
DATE: 04/04/2019 SUBJECTIVE: Mr. Emerson has not had any further seizure activity. He reports he feels well and has had no problem tolerating levetiracetam. He would like to go home. We reviewed his history of stroke with right occipital lesion and left hemianopia. I advised him not to drive because of limited visual field. Further, he should not drive because of recent seizure. He told me he has family to drive him when needed. I do not have any new suggestion for Neurology standpoint. I will be glad to see him again to followup on levetiracetam dose if needed. Thanks for asking Neurology to see Mr. Emerson. cc: MD JOLANTA Duran III
--- NOTE | 2019-04-04 18:32 | ECHO REPORT ---
ORDER DATE: 04/03/2019 INTERPRETING PHYSICIAN: Dr. Wood Phillips REQUESTING PHYSICIAN: Dr. Martha Woods. CLINICAL INDICATIONS: A 78-year-old male with recent stroke, atrial fibrillation. M-MODE MEASUREMENTS: Left ventricle end diastole: 5.0 cm. Left ventricle end systole: 3.4 cm. Posterior wall: 0.9 cm. Interventricular septum: 0.9 cm. Left atrium: 4.2 cm. Aortic root: 3.3 cm. SUMMARY OF 2-DIMENSIONAL IMAGIN. The left ventricular systolic function appears to be grossly within normal range. The ejection fraction is estimated to be somewhere in the neighborhood of 55%. I do not see any wall motion abnormalities. 2. Aortic valve has 3 cusps that open normally. Color flow mapping unremarkable. 3. Mitral valve opens normally. Color flow mapping indicates a mild to moderate degree of regurgitation. 4. The patient is in atrial fibrillation. Diastolic function cannot be adequately evaluated in this case. 5. Tricuspid valve shows moderate degree of regurgitation. 6. Pulmonary pressure estimated at 45-50 mmHg. 7. Pulmonic valve is grossly unremarkable. 8. The atria appear to be mild to moderately enlarged. 9. There is no pericardial effusion, mass or thrombus. Clinical correlation is recommended. cc: MD Martha Antoine MD
--- NOTE | 2019-04-04 22:29 | Carotid Study ---
DATE: 04/03/2019 [facility] DRIVER: Frank. REQUESTING PHYSICIAN: Martha Woods MD INDICATIONS: Carotid artery stenosis. FINDINGS: Bilateral carotid arteries were visualized along their course. In the right carotid bulb, there is a heterogeneous calcified plaque, and in the proximal internal carotid, there is an elevation of velocities that would correlate to a 60% to 79% stenosis. On the left, again, there is plaque disease noted in the left bulb and more distal elevation of velocities that would correlate to a 40% to 59% stenosis here. The vertebrals are antegrade bilaterally. IMPRESSION: Severe stenosis of the right carotid artery, moderate stenosis on the left with antegrade vertebrals. cc: MD Martha Varela MD
--- NOTE | 2019-04-15 10:06 | DISCHARGE SUMMARY ---
ADMISSION DATE: 04/02/2019 DISCHARGE DATE: 04/04/2019 FINAL DISCHARGE DIAGNOSES: 1. New onset seizures status post recent stroke. 2. Hypotension. 3. Chronic atrial fibrillation. 4. History of a recent right posterior cerebral artery distribution infarct. CONSULTATIONS: 1. Neurology consultation with Dr. Ortiz. 2. Cardiology consultation with Dr. Phillips. HOSPITAL COURSE: Mr. Emerson is a 78-year-old male with a history of a recent right posterior cerebral artery distribution infarct, who was transferred from [place] after the patient was seen in the ER, noted to be having seizure activity. The patient was given Ativan prior to transfer, and arrived to [facility] to the Medical ICU. The patient was placed on IV Keppra, and monitored closely. He was noted to be hypotensive, and was started on Tonio- Synephrine. Neurology was consulted, and the patient underwent an EEG that did reveal seizure activity. The patient's Keppra dosage was increased to 750 mg IV every 12 hours, and the patient was also seen by the ppa teacher, who recommended continuing the anticoagulation as ordered. The Tonio- Synephrine drip was eventually weaned off, and the patient's mental status improved. The patient was then transferred to the medical floor, and Physical Therapy was consulted. The patient did well clinically, and was ultimately cleared for discharge home. DISCHARGE MEDICATIONS: 1. Eliquis 5 mg oral twice a day. 2. Keppra 750 mg oral twice a day. 3. Aldactone 25 mg p.o. daily. 4. Lopressor 25 mg p.o. daily. 5. Lipitor 40 mg p.o. daily. 6. Zoloft 50 mg p.o. daily. DISCHARGE DIET: Low-sodium, low-cholesterol diet. ACTIVITY: As tolerated. FOLLOWUP INSTRUCTIONS: The patient will need to follow up with his ppa teacher in 2 weeks. The patient will need to follow up with his primary care physician, Dr. Guerrero, in 1 to 2 weeks. cc: Martha Woods MD [facility]
== END 2019-04-04 17:29 | DRG 56 ==
LOC: P.ED 11:28 → SUATTDRO 15:55 → ICU 15:55 → 3N 04-04 07:38
PROVIDERS: ATTEND Internal Medicine